=== PATIENT | male | born 1950 | race Hispanic/Latino ===

== ENCOUNTER 2021-07-12 04:01 | Inpatient (IN) | payer MEDICARE ==
[2021-07-12] MEDS ORDERED: Albuterol Sulfate 1.25 MG/3 ML NEB EZPAP PRN (08:35)
[2021-07-12] MEDS ORDERED: Dextrose 50% Abboject 50 ML SYRINGE SLOW IVP PRN (08:41)
[2021-07-12] MEDS ORDERED: Dextrose 5% in Water 1,000 ML IV PRN (08:41)
[2021-07-12] MEDS ORDERED: methylPREDNISolone Sod Succ 40 MG VIAL IVP SCH (08:45)
[2021-07-12] MEDS ORDERED: Sodium Chloride 0.9% 1,000 ML IV SCH (08:45)
[2021-07-12] MEDS ORDERED: Nitroglycerin 0.4 MG TAB (25 Tab Bottle) SL PRN (08:55)
[2021-07-12] MEDS ORDERED: Aspirin 81 mg Enteric Coated Tablet PO SCH (09:00)
[2021-07-12] MEDS: Aspirin 81 mg Enteric Coated Tablet PO SCH (10:13)
[2021-07-12] MEDS: cefTRIAXone\\ROCEPHIN 1 GM in Sodium Chloride 0.9% 100 ML IVPB SCH (10:16)
[2021-07-12] MEDS: Cyclobenzaprine 10 MG TAB PO SCH ×2 (10:16→21:24)
[2021-07-12 10:32] LABS: Troponin I Less than 0.010 ng/mL (< 0.028)
[2021-07-12 11:05] LABS: Bacteria/HPF None Seen HPF (None Seen); Bilirubin Negative (Negative); Blood, Urine Negative (Negative); Clarity Clear (Clear); Glucose, Urine (Dipstick) 500 mg/dL (Negative); Ketone, Urine 10 mg/dL (Negative); Leukocyte Negative Leu/uL (Negative); Nitrite Negative (Negative); Protein, Urine (Dipstick) Negative (Neg-Trace); RBC/HPF 0-3 HPF (0-3); Specific Gravity, Urine 1.022 (1.002-1.036); Squamous Epithelial 0-3 HPF (0-3); Urobilinogen Normal mg/dL (Less than 2); WBC/HPF 0-3 HPF (0-3)
[2021-07-12 11:26] LABS: Urine Culture Reflex No No
[2021-07-12] MEDS: HumaLOG 300 UNITS/3 ML VIAL SC PRN ×2 (11:28→16:27)
[2021-07-12] MEDS: Azithromycin 500 MG in Sodium Chloride 0.9% 250 ML 250 ML IVPB SCH (11:28)
[2021-07-12] MEDS ORDERED: ISOVUE-370 76%-LOCM 1 ML ONE (11:46)
[2021-07-12] MEDS: Sodium Chloride 0.9% 1,000 ML IV SCH (16:28)
[2021-07-12] MEDS ORDERED: Metoprolol Tartrate 5 MG/5 ML VIAL IVP PRN (17:01)
[2021-07-12] MEDS: Mometasone 200 MCG/Formoterol 5 MCG 120 PUFF INHALER INH SCH (19:09)
[2021-07-12] MEDS: Ketorolac Tromethamine 30 MG/ML VIAL IVP PRN (21:30)
[2021-07-12 23:06] LABS: Lactic Acid 2.9 mmol/L (0.5-2.2)
[2021-07-13] MEDS: Sodium Chloride 0.9% 1,000 ML IV SCH ×2 (01:00→10:25)
[2021-07-13] MEDS: Ketorolac Tromethamine 30 MG/ML VIAL IVP PRN (03:37)
[2021-07-13 05:13] LABS: Band 4 % (5-11); Hemoglobin 12.9 g/dL (14.0-18.0); Hypochromia SLIGHT = 6-15 cells (100X) (0-5/hpf); Lymphocytes 15 % (21-51); MDiff Complete? YES; Mean Corpuscular HGB CONC 34.2 g/dL (32.0-36.0); Mean Corpuscular Hemoglobin 31.2 pg (27.0-31.0); Mean Corpuscular Volume 91.1 fL (78.0-98.0); Mean Platelet Volume 8.2 fL (7.4-10.4); Monocytes 7 % (0-10); Neutrophil 74 % (42-75); Platelet Count 229 thou/uL (130-400); Platelet Morphology Comment Appears Adequate; RBC Distribution Width 12.7 % (11.5-14.5); Red Blood Cell (RBC) Count 4.14 mill/uL (4.70-6.10)
[2021-07-13] MEDS: Mometasone 200 MCG/Formoterol 5 MCG 120 PUFF INHALER INH SCH ×2 (07:23→19:04)
[2021-07-13] MEDS: Aspirin 81 mg Enteric Coated Tablet PO SCH (09:20)
[2021-07-13] MEDS: Cyclobenzaprine 10 MG TAB PO SCH ×2 (09:20→20:21)
[2021-07-13] MEDS: predniSONE 20 MG TAB PO SCH (09:21)
[2021-07-13] MEDS: cefTRIAXone\\ROCEPHIN 1 GM in Sodium Chloride 0.9% 100 ML IVPB SCH (09:22)
[2021-07-13 11:52] VITALS: BMI 33.8
[2021-07-13 13:00] LABS: Anion Gap 14 mmol/L (10-20); BUN (Urea Nitrogen) 20 mg/dL (8.4-25.7); Calc. Creatinine Clearance 114 mL/min (70-130); Calcium 9.3 mg/dL (7.8-10.44); Carbon Dioxide 23 mmol/L (23-31); Chloride 105 mmol/L (98-107); Glucose 156 mg/dL (80-115); Sodium 138 mmol/L (136-145)
[2021-07-13 13:04] LABS: Lactic Acid 2.5 mmol/L (0.5-2.2)
[2021-07-13] MEDS: Azithromycin 250 MG TAB PO SCH (13:10)
[2021-07-13] MEDS: Lidocaine 5% Patch TD SCH (13:11)
[2021-07-13] MEDS: Azithromycin 500 MG in Sodium Chloride 0.9% 250 ML 250 ML IVPB SCH (13:23)
[2021-07-13] MEDS: HumaLOG 300 UNITS/3 ML VIAL SC PRN (16:40)
[2021-07-13] MEDS ORDERED: Folic Acid 1 MG TAB PO SCH (20:00)
[2021-07-13] MEDS: Famotidine 20 MG TAB PO SCH (20:21)
[2021-07-13] MEDS ORDERED: Lidocaine Patch Removal TOP SCH (21:00)
[2021-07-14 04:01] LABS: #Basophils 0.1 thou/uL (0.0-0.2); #Eosinphils 0.1 thou/uL (0.0-0.7); #Lymphocytes 2.3 thou/uL (1.20-3.40); #Neutrophils 11.8 thou/uL (1.40-6.50); %Basophils 0.3 % (0.0-1.0); %Eosinophils 0.4 % (0.0-10.0); %Lymphocytes 14.9 % (21.0-51.0); %Monocytes 6.3 % (0.0-10.0); Hemoglobin 13.7 g/dL (14.0-18.0); Mean Corpuscular HGB CONC 33.2 g/dL (32.0-36.0); Mean Corpuscular Hemoglobin 30.3 pg (27.0-31.0); Mean Corpuscular Volume 91.2 fL (78.0-98.0); Mean Platelet Volume 8.2 fL (7.4-10.4); Platelet Count 240 thou/uL (130-400); RBC Distribution Width 12.9 % (11.5-14.5); Red Blood Cell (RBC) Count 4.53 mill/uL (4.70-6.10); White Blood Cell (WBC) Count 15.2 thou/uL (4.8-10.8)
[2021-07-14 04:23] LABS: ALT (SGPT) 17 U/L (8-55); AST (SGOT) 14 U/L (5-34); Albumin 3.6 g/dL (3.4-4.8); Alkaline Phosphatase 70 U/L (40-110); Anion Gap 12 mmol/L (10-20); BUN (Urea Nitrogen) 20 mg/dL (8.4-25.7); Bilirubin, Total 0.2 mg/dL (0.2-1.2); Calc. Creatinine Clearance 112 mL/min (70-130); Calcium 9.1 mg/dL (7.8-10.44); Carbon Dioxide 25 mmol/L (23-31); Chloride 104 mmol/L (98-107); Globulin 3.4 g/dL (2.4-3.5); Glucose 215 mg/dL (80-115); Potassium 3.7 mmol/L (3.5-5.1); Sodium 137 mmol/L (136-145)
[2021-07-14] MEDS: Ketorolac Tromethamine 30 MG/ML VIAL IVP PRN (05:06)
[2021-07-14] MEDS: Mometasone 200 MCG/Formoterol 5 MCG 120 PUFF INHALER INH SCH (06:41)
[2021-07-14] MEDS: predniSONE 20 MG TAB PO SCH (08:41)
[2021-07-14] MEDS: cefTRIAXone\\ROCEPHIN 1 GM in Sodium Chloride 0.9% 100 ML IVPB SCH (08:41)
[2021-07-14] MEDS: Aspirin 81 mg Enteric Coated Tablet PO SCH (08:41)
[2021-07-14] MEDS: Cyclobenzaprine 10 MG TAB PO SCH (08:42)
[2021-07-14] MEDS: Lidocaine 5% Patch TD SCH (08:43)
[2021-07-14] MEDS: Famotidine 20 MG TAB PO SCH (08:43)
[2021-07-14] MEDS ORDERED: Folic Acid 1 MG TAB PO SCH (09:00)
[2021-07-14] MEDS: Azithromycin 250 MG TAB PO SCH (11:29)
[2021-07-14 12:03] VITALS: BP 156/86; TEMP 98.2
[2021-07-15] MEDS ORDERED: FLU VACC QS2021-22(65YR UP)/PF 240 MCG/0.7 ML SYRINGE IM ONE (09:00)
== END 2021-07-14 14:53 | DRG 871 ==
LOC: 2NO 05:44 → OBSVTOIN 17:01
PROVIDERS: ADMIT Student in an Organized Health Care Education/Training Program; ATTEND Nurse Practitioner Family
DX: A41.9 Sepsis, unspecified organism (principal); J18.9 Pneumonia, unspecified organism; J44.0 Chronic obstructive pulmonary disease with (acute) lower respiratory infection; E11.9 Type 2 diabetes mellitus without complications; Z20.822 Contact with and (suspected) exposure to COVID-19; R07.81 Pleurodynia; R03.0 Elevated blood-pressure reading, without diagnosis of hypertension; R20.2 Paresthesia of skin; D72.829 Elevated white blood cell count, unspecified; T38.0X5A Adverse effect of glucocorticoids and synthetic analogues, initial encounter; M54.2 Cervicalgia; M54.50 Low back pain, unspecified; E53.8 Deficiency of other specified B group vitamins; Z79.51 Long term (current) use of inhaled steroids; Z79.899 Other long term (current) drug therapy
CPT/HCPCS: 36415; 36416; 71260; 72141; 72148; 80048; 80053; 81001; 82607; 82746; 83605; 85025; 87040; 93306; 94640; J0456; J0696; J1815; J1885; J2920; J3490; J7050; J7512; J7620; Q9966

== ENCOUNTER 2021-08-01 20:01 | Emergency (ER) | payer MEDICARE ==
[2021-08-01 20:42] LABS: #Eosinphils 0.7 thou/uL (0.0-0.7); #Lymphocytes 1.3 thou/uL (1.20-3.40); #Monocytes 0.6 thou/uL (0.11-0.59); #Neutrophils 7.4 thou/uL (1.40-6.50); %Basophils 0.4 % (0.0-1.0); %Eosinophils 7.2 % (0.0-10.0); %Lymphocytes 13.2 % (21.0-51.0); %Monocytes 5.9 % (0.0-10.0); %Neutrophils 73.4 % (42.0-75.0); Hemoglobin 12.9 g/dL (14.0-18.0); Mean Corpuscular HGB CONC 32.7 g/dL (32.0-36.0); Mean Corpuscular Hemoglobin 30.2 pg (27.0-31.0); Mean Corpuscular Volume 92.3 fL (78.0-98.0); Mean Platelet Volume 8.7 fL (7.4-10.4); Platelet Count 161 thou/uL (130-400); RBC Distribution Width 12.6 % (11.5-14.5); Red Blood Cell (RBC) Count 4.28 mill/uL (4.70-6.10)
[2021-08-01 21:02] LABS: ALT (SGPT) 13 U/L (8-55); AST (SGOT) 14 U/L (5-34); Albumin 3.6 g/dL (3.4-4.8); Alkaline Phosphatase 73 U/L (40-110); Anion Gap 12 mmol/L (10-20); BUN (Urea Nitrogen) 17 mg/dL (8.4-25.7); Bilirubin, Total 0.3 mg/dL (0.2-1.2); Calc. Creatinine Clearance 0 mL/min (70-130); Calcium 8.5 mg/dL (7.8-10.44); Carbon Dioxide 23 mmol/L (23-31); Chloride 106 mmol/L (98-107); Globulin 2.6 g/dL (2.4-3.5); Glucose 126 mg/dL (80-115); Potassium 3.8 mmol/L (3.5-5.1); Protein, Total 6.2 g/dL (5.8-8.1); Sodium 137 mmol/L (136-145)
[2021-08-01] MEDS ORDERED: Albuterol 200 PUFF (6.7GM INHALER) ONE (21:34)
[2021-08-01 22:09] LABS: Magnesium 1.6 mg/dL (1.6-2.6)
[2021-08-01] MEDS ORDERED: cefTRIAXone\\ROCEPHIN 2 GM VIAL ONE (22:23)
[2021-08-01] MEDS ORDERED: Azithromycin 500 MG VIAL ONE (23:11)
[2021-08-02 00:22] LABS: Troponin I Less than 0.010 ng/mL (< 0.028)
== END 2021-08-02 00:13 ==
LOC: ERS 20:01
DX: J18.9 Pneumonia, unspecified organism (principal); E11.9 Type 2 diabetes mellitus without complications
CPT/HCPCS: 36415; 71045; 80053; 83605; 83735; 83880; 84484; 85025; 93005; 96365; 96366; 96368; J0456; J0696

== ENCOUNTER 2021-09-17 09:14 | Outpatient (CLI) | payer MEDICARE | END 2021-09-17 09:15 | disposition home or self-care (01) | LOC: RAD 09:14 | PROVIDERS: ATTEND Internal Medicine Critical Care Medicine | DX: R06.00 Dyspnea, unspecified (principal) | CPT/HCPCS: 71046 ==